=== PATIENT | female | born 1980 | race Caucasian/White ===

== ENCOUNTER 2019-07-14 10:44 | Emergency (ER) | payer SELFPAY ==
[~2019-07-14] VITALS: Ht 162.6 cm; Wt 113.4 kg
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
--- OUTSIDE RECORDS SUMMARY | 2019-07-14 10:46 | XMS REPORT | Summary of Care ---
Author Author [facility] - Health Organization [facility] - Health Address Unknown Phone Unavailable Care Team Providers Care Hydrostatic Tester Name Role Phone Pcp, Patient Does Not Have A PCP Reason for Visit * Reason Comments Follow-up Encounter Details Care Team Description Date Type Department Willa Llamas RN [address] [place] [id number] Follow-up 03/31/2019 Patient [facility] [place] Allergies Comments Active Allergy Reactions Severity Noted Date Cayenne Pepper Fruits Unknown - See 02/24/2017 comments Chicken Meat Extract Unknown - See 02/24/2017 comments documented as of this encounter (statuses as of 03/31/2019) Medications End Date Status Medication Sig Dispensed [...] mouth 9 Cellulitis, unspecified daily. cellulitis site Active ketorolac 10 mg Take 1 tablet 20 tablet 0 tabletIndications: Scalp by mouth 9 hematoma, initial every 6 (six) encounter, Contusion of hours as scalp, initial encounter needed for Pain (scale 4-6) or Pain (scale 7-10) (Headache). Active meclizine 25 mg Take 1 tablet 20 tablet 0 tabletIndications: by mouth 3 9 Contusion of scalp, (three) times initial encounter daily as needed for Dizziness. documented as of this encounter (statuses as of 03/31/2019) Active Problems Problem Noted Date Cellulitis 03/09/2019 [...] as of this encounter (statuses as of 03/31/2019) Immunizations Name Administration Dates Next Due Influenza Virus Vaccine 06/06/2017 Pneumococcal 08/06/2016 Polysaccharide, PPSV23 (PNEUMOVAX) Tdap 02/02/2015 documented as of this encounter Social History Date Tobacco Use Types Packs/Day Years Used Never Smoker Smokeless Tobacco: Never Used Drinks/Week oz/Week Comments Alcohol Use No Sex Assigned at Date Recorded Not on file Industry Job Start Date Occupation Not on file Not on file Not on file Travel End Travel History Travel Start No recent travel history available. documented as of this encounter Last Filed Vital Signs Not on filedocumented in this encounter Progress Notes * Willa Llamas RN - 03/31/2019 2:45 PM CDT Post ED visit f/up call to Ms. Doyle who presented to [facility] ED after falling in her bathroom. Is a recent BKA. Ms. Christianson contacted to check overall status; denies any needs or services at this time. She has all her medications, glucometer & strips, goes to [facility] clinic in [place] as she is not charged for visits. Has friends who help her out a lot. Asked her to keep this CM's name & phone # for any future needs she may have. She stated will do so. documented in this encounter Plan of Treatment Health Maintenance Due Date Last Done Comments EYE EXAM 1988 URINE MICROALBUMIN 1988 FOOT EXAM 1996 PAP SMEAR 1999 LDL-C 02/02/2016 02/01/2015 MAMMOGRAM 2018 HgA1C 09/15/2018 03/15/2018, 01/08/2018, 01/08/2018, Additional history exists INFLUENZA VACCINE (#1) 2019 06/06/2017 CREATININE (SERUM) 03/09/2020 03/09/2019, 03/19/2018, 03/18/2018, Additional history exists DTaP,Tdap,and Td Vaccines 02/02/2025 02/02/2015 (2 - Td) PNEUMOCOCCAL 0-64 YEARS Completed 08/06/2016 COMBINED SERIES documented as of this encounter Results Not on filedocumented in this encounter Insurance Type Payer Benefit Subscriber ID Effective Phone Address Plan / Dates Group Pending MEDICAID PENDING MEDICAID PENDING 2019-P [id number] [facility] [facility] [place] [address] documented as of this encounter
--- OUTSIDE RECORDS SUMMARY | 2019-07-14 10:46 | XMS REPORT ---
Author Author [facility] Address Unknown Phone Unavailable Care Team Providers Care Surface Plate Inspector Name Role Phone Unavailable Unavailable Problems This patient has no known problems. Allergies, Adverse Reactions, Alerts This patient has no known allergies or adverse reactions. Medications This patient has no known medications.
--- OUTSIDE RECORDS SUMMARY | 2019-07-14 10:46 | XMS REPORT | Summary of Care ---
Author Author [facility] - Health Organization [facility] - Health Address Unknown Phone Unavailable Care Team Providers Care Sampler Pickup Name Role Phone Pcp, Patient Does Not Have A PCP Reason for Visit * Reason Comments Fall * Auth/Cert Referred By Contact Referred To Contact Status Reason Specialty Diagnoses / Procedures [facility] Emergency Dept [address] [place] [phone] Emergency Medicine Encounter Details Care Team Description Date Type Department Federico Arango MD [address] [place] [phone] Scalp hematoma, initial encounter (Primary Dx); Contusion of scalp, initial encounter 03/29/2019 Emergency [facility]-Emergency Department [address] [place] [phone] Allergies Comments Active Allergy Reactions Severity Noted Date Cayenne Pepper Fruits Unknown - See 02/24/2017 comments Chicken Meat Extract Unknown - See 02/24/2017 comments documented as of this encounter (statuses as of 03/29/2019) Medications End Date Status Medication Sig Dispensed [...] as of this encounter (statuses as of 03/29/2019) Active Problems Problem Noted Date Cellulitis 03/09/2019 [...] as of this encounter (statuses as of 03/29/2019) Immunizations Name Administration Dates Next Due Influenza [...] Signs Reading Time Taken Comments Vital Sign 150/82 03/29/2019 3:51 PM CDT Blood Pressure 75 03/29/2019 3:51 PM CDT Pulse - - Temperature 18 03/29/2019 3:51 PM CDT Respiratory Rate 100% 03/29/2019 3:51 PM CDT Oxygen Saturation - - Inhaled Oxygen Concentration 99 kg (218 lb 4.1 oz) 03/29/2019 3:27 PM CDT Weight - - Height 37.46 01/18/2018 2:33 PM CDT Body Mass Index documented in this encounter Discharge Instructions * Attachments The following attachments cannot be sent through Care Everywhere.* Bruises (Contusions) (Lebanese) * Scalp Contusion (Lebanese) * Head Injury (Adult) (Lebanese) documented in this encounter Plan of Treatment Health Maintenance Due Date Last Done Comments EYE EXAM 1988 URINE MICROALBUMIN 1988 FOOT EXAM 1996 PAP SMEAR 1999 LDL-C 02/02/2016 02/01/2015 MAMMOGRAM 2018 HgA1C 09/15/2018 03/15/2018, 01/08/2018, 01/08/2018, Additional history exists INFLUENZA VACCINE 04/06/2019 06/06/2017 (Retired version) CREATININE (SERUM) 03/09/2020 03/09/2019, 03/19/2018, 03/18/2018, Additional history exists DTaP,Tdap,and Td Vaccines 02/02/2025 02/02/2015 (2 - Td) PNEUMOCOCCAL 0-64 YEARS Completed 08/06/2016 COMBINED SERIES documented as of this encounter Results Not on filedocumented in this encounter Visit Diagnoses Diagnosis Scalp hematoma, initial encounter - Primary Contusion of scalp, initial encounter documented in this encounter Administered Medications Action Date Dose Rate Site Medication Order MAR Action 03/29/2019 3:39 PM CDT 60 mg Left Dorsogluteal-IM ketorolac (TORADOL) injection 60 mg Given 60 mg, Intramuscular, ONCE, 1 dose, 03/29/19 at 1630, SOCO, cleaning team member approving Restricted medication: FEDERICO ARANGO 03/29/2019 3:39 PM CDT 25 mg meclizine (TRAVEL-EASE (MECLIZINE)) Given tablet 25 mg 25 mg, Oral, ONCE, 1 dose, 03/29/19 at 1630, SOCO documented in this encounter
== END 2019-07-14 11:36 | disposition home or self-care (01) ==
LOC: ER 10:44
DX: M79.671 Pain in right foot (principal); L03.115 Cellulitis of right lower limb; R26.2 Difficulty in walking, not elsewhere classified; E11.9 Type 2 diabetes mellitus without complications; F17.210 Nicotine dependence, cigarettes, uncomplicated
CPT/HCPCS: 99283